=== PATIENT | female | born 1995 | race Caucasian/White ===

== ENCOUNTER 2021-05-04 22:29 | Emergency (ER) | payer OTHER ==
[~2021-05-04 22:29] MED LIST: BENTYL10 MG PO; ZOFRAN8 MG PO
[2021-05-04 23:32] LABS: BASOPHIL 0.2 % (0-2); EOSINOPHIL 1.1 % (0-5); HGB 12.9 g/dl (12.5-16.0); LYMPHOCYTE 24.7 % (15-48); MCH 31.1 pg (25.0-31.0); MCHC 33.9 g/dL (32.0-36.0); MCV 91.6 fL (78.0-100.0); MONOCYTE 6.5 % (0-12); MPV 10.8 fL (6.0-9.5); NEUTROPHIL 67.2 % (41-80); NRBC 0; PLT 255 K/uL (150-400); RBC 4.15 M/uL (4.20-5.40); RDW 12.9 % (11.5-14.0)
[2021-05-04 23:47] LABS: BILIRUBIN 1+ mg/dL (NEGATIVE); BLOOD NEGATIVE Ery/uL (NEGATIVE); CLARITY CLEAR (CLEAR); COLOR YELLOW (YELLOW); GLUCOSE (U) NORMAL (NORMAL); LEUKOCYTES NEGATIVE Leu/uL (NEGATIVE); NITRITE NEGATIVE (NEGATIVE); PROTEIN NEGATIVE (NEGATIVE); SPECIFIC GRAVITY >=1.030 (1.001-1.030)
[2021-05-04 23:48] LABS: ALBUMIN 3.5 g/dL (3.4-5.0); BILIRUBIN - TOTAL 0.4 mg/dL (0.2-1.0); CREATININE 0.5 mg/dL (0.51-0.95); MAGNESIUM 1.6 mg/dL (1.8-2.4); POTASSIUM 3.3 mmol/L (3.5-5.1); TOTAL PROTEIN 7.5 g/dL (6.4-8.2)
[2021-05-05 00:19] LABS: PHOSPHORUS 4.4 mg/dL (2.6-4.7)
== END 2021-05-05 02:30 | disposition home or self-care (01) ==
LOC: FER 22:29
PROVIDERS: Emergency Medicine
DX: O99.892 Other specified diseases and conditions complicating childbirth (principal); R51.9 Headache, unspecified; R53.83 Other fatigue; O99.332 Smoking (tobacco) complicating pregnancy, second trimester; F17.200 Nicotine dependence, unspecified, uncomplicated; Z3A.17 17 weeks gestation of pregnancy; Z20.822 Contact with and (suspected) exposure to COVID-19
CPT/HCPCS: 36415; 80053; 81003; 83735; 84100; 85025; J3475; J7030; U0002

== ENCOUNTER 2021-05-31 16:22 | Emergency (ER) | payer OTHER ==
[2021-05-31 16:54] LABS: BASOPHIL 0.2 % (0-2); HCT 34.4 % (37.0-47.0); HGB 11.6 g/dl (12.5-16.0); LYMPHOCYTE 20.3 % (15-48); MCH 31.9 pg (25.0-31.0); MCHC 33.7 g/dL (32.0-36.0); MCV 94.5 fL (78.0-100.0); MONOCYTE 6.2 % (0-12); MPV 10.1 fL (6.0-9.5); NEUTROPHIL 71.3 % (41-80); NRBC 0; PLT 245 K/uL (150-400); RBC 3.64 M/uL (4.20-5.40); RDW 13.1 % (11.5-14.0); WBC 11.5 K/uL (4.0-10.5)
[2021-05-31 17:18] LABS: BILIRUBIN - TOTAL 0.2 mg/dL (0.2-1.0); BUN/CREAT RATIO (CALC) 17.7 RATIO; CREATININE 0.62 mg/dL (0.51-0.95); GLOBULIN (CALCULATION) 3.8 g/dL; POTASSIUM 3.8 mmol/L (3.5-5.1); TOTAL PROTEIN 6.8 g/dL (6.4-8.2)
[2021-05-31 18:38] LABS: BILIRUBIN NEGATIVE (NEGATIVE); BLOOD NEGATIVE Ery/uL (NEGATIVE); CLARITY HAZY (CLEAR); COLOR YELLOW (YELLOW); GLUCOSE (U) NORMAL (NORMAL); LEUKOCYTES NEGATIVE Leu/uL (NEGATIVE); NITRITE NEGATIVE (NEGATIVE); PROTEIN NEGATIVE (NEGATIVE); SPECIFIC GRAVITY >=1.030 (1.001-1.030); UROBILINOGEN 0.2 mg/dL (0.2-1.0)
== END 2021-05-31 20:11 | disposition home or self-care (01) ==
LOC: FER 16:22
PROVIDERS: Emergency Medicine
DX: O9A.212 Injury, poisoning and certain other consequences of external causes complicating pregnancy, second trimester (principal); S39.81XA Other specified injuries of abdomen, initial encounter; Z3A.21 21 weeks gestation of pregnancy; V49.50XA Passenger injured in collision with unspecified motor vehicles in traffic accident, initial encounter; Y92.410 Unspecified street and highway as the place of occurrence of the external cause
CPT/HCPCS: 36415; 76815; 80053; 81003; 85025; 86850; 86900; 86901; J2790